=== PATIENT | female | born 1935 | race Caucasian/White ===

== ENCOUNTER 2023-04-14 12:29 | Emergency (ER) | payer MEDICARE ==
[~2023-04-14] VITALS: Ht 157.5 cm; Wt 55.8 kg
[2023-04-14 12:30] VITALS: RESP 18; TEMP 97.6; O2SAT 97
[2023-04-14 13:24] LABS: BASOPHILS % (AUTO) 0.2 % (0.0-2.0); HEMATOCRIT 33.9 % (36-48); HEMOGLOBIN 11.5 g/dL (12.0-16.0); LYMPHOCYTES # (AUTO) 0.7 K/uL (1.0-5.5); LYMPHOCYTES % (AUTO) 3.2 % (20.5-51.5); MEAN CORPUSCULAR HEMOGLOBIN 31 pg (27-31); MEAN CORPUSCULAR HGB CONC 34 % (32-36); MEAN CORPUSCULAR VOLUME 90 fL (79.0-98.0); MONOCYTES # (AUTO) 1.2 K/uL (0.0-1.0); MONOCYTES % (AUTO) 5.9 % (1.7-9.3); NEUTROPHILS # (AUTO) 19.3 K/uL (1.8-7.7); NEUTROPHILS % (AUTO) 90.7 % (40.0-70.0); PLATELET COUNT (AUTO) 504 K/uL (130-430); RED BLOOD CELL COUNT(AUTO) 3.75 MIL/uL (4.2-6.2); WHITE BLOOD COUNT (AUTO) 21.2 K/uL (4.8-10.8)
[2023-04-14 13:41] LABS: ALANINE AMINOTRANSFERASE 21 U/L (12-78); ALBUMIN 2.8 g/dL (3.4-4.8); ANION GAP 12 (5-15); ASPARTATE AMINOTRANSFERASE 16 U/L (10-37); CALCIUM 9.2 mg/dL (8.4-11.0); CARBON DIOXIDE 28 mmol/L (23-29); CHLORIDE 101 mmol/L (98-107); CREATININE 0.92 mg/dL (0.55-1.30); GLUCOSE 105 mg/dL (74-106); LIPASE 168 U/L (16-77); POTASSIUM 3.3 mmol/L (3.5-5.1); SODIUM SERUM 141 mmol/L (136-145); TOTAL BILIRUBIN 0.5 mg/dL (0.0-1.0); TOTAL PROTEIN, SERUM 6.7 g/dL (6.4-8.3); UREA NITROGEN, BLOOD 28 mg/dL (8-21)
[2023-04-14] MEDS ORDERED: IPRATROPIUM/ALBUTEROL SULFATE 3 ML AMPUL.NEB (DUONEB) ONE (13:41)
[2023-04-14] MEDS: IPRATROPIUM/ALBUTEROL SULFATE 3 ML AMPUL.NEB (DUONEB) INH ONE (13:49)
[2023-04-14] MEDS ORDERED: PIPERACILLIN/TAZOBACTAM 3.375 GM/VIAL (ZOSYN) IV ONE (15:07)
[2023-04-14] MEDS: ONDANSETRON HCL 4 MG/2 ML VIAL IVP ONE (15:09)
[2023-04-14] MEDS: MORPHINE 4 MG INJ. 4 MG/ML VIAL IVP ONE (15:09)
[2023-04-14] MEDS: PIPERACILLIN/TAZO 3.375 GM in NS 50 ML IV ONE (15:22)
[2023-04-14 16:48] LABS: BILIRUBIN,URINE NEGATIVE (NEGATIVE); BLOOD, URINE NEGATIVE (NEGATIVE); COLOR,URINE YELLOW (YELLOW); GLUCOSE,URINE NEGATIVE (NEGATIVE); KETONES,URINE NEGATIVE (NEGATIVE); LEUKOCYTE ESTERASE ,URINE NEGATIVE (NEGATIVE); NITRITE, URINE NEGATIVE (NEGATIVE); PH,URINE 5.5 (5.0-8.0); PROTEIN URINE 2+ (NEGATIVE); UROBILINOGEN,URINE 0.2 (0.2-1.0)
[2023-04-14] MEDS: POLYETHYLENE GLYCOL 3350, 17 GM/ POWD.PACK PO SCH (16:56)
[2023-04-14] MEDS: SIMETHICONE 80 MG TAB.CHEW PO ONE (16:56)
[2023-04-14 17:01] LABS: CLARITY/URINE SLIGHTLY HAZY (CLEAR)
[2023-04-14 17:26] LABS: BACTERIA,URINE FEW /HPF (None Seen); MUCUS,URINE None Seen /LPF (None Seen); RBC,URINE 0-3 /HPF (0-3)
[2023-04-14] MEDS: SODIUM PHOSPHATE,MONO-DIBASIC 133 ML ENEMA RC ONE (17:28)
[2023-04-14] MEDS: NACL 0.9% 1,000 ML IV ONE (17:34)
[2023-04-14] MEDS ORDERED: DOCU-144 PO (18:24)
[2023-04-14] MEDS ORDERED: POLY17PO4 PO (18:24)
[2023-04-14] MEDS ORDERED: SIME80TA15 PO (18:24)
[2023-04-14] MEDS ORDERED: DOCU283E RC (18:24)
[2023-04-14 18:52] LABS: COVID19 ANTIGEN SOFIA FIA NEGATIVE (NEGATIVE)
[2023-04-14 18:54] VITALS: BP_SYST 167; PULSE 90; RESP 17; TEMP 97.6; O2SAT 98
[2023-04-14 18:54] LABS: INFLUENZA TYPE A Negative (NEGATIVE); INFLUENZA TYPE B NEGATIVE (NEGATIVE)
== END 2023-04-14 18:54 | disposition home or self-care (01) ==
LOC: EDBD 12:29 → SED 12:29
DX: K59.00 Constipation, unspecified (principal); K58.9 Irritable bowel syndrome, unspecified; R10.30 Lower abdominal pain, unspecified; E87.6 Hypokalemia; I10 Essential (primary) hypertension; E03.9 Hypothyroidism, unspecified; Z79.899 Other long term (current) drug therapy; Z20.822 Contact with and (suspected) exposure to COVID-19
CPT/HCPCS: 99285; 74177; 96365; 71045; 96375; 96361; 87426; 80053; 81001; 83880; 83690; 85025; 87040; 84484; 36415; 93005; 76376; 94640; 83605; 87804 ×2; 81000; 81015; J2405; J2543; J2270; Q9967; J7030